=== PATIENT | male | born 1975 | race Caucasian/White ===

== ENCOUNTER 2021-12-04 23:54 | Emergency (ER) | payer OTHER ==
[2021-12-05] MEDS ORDERED: IBUPROFEN600 MG PO (02:02)
[2021-12-05] MEDS ORDERED: NORFLEX 100 MG100 MG PO (02:02)
== END 2021-12-05 02:31 | disposition home or self-care (01) ==
LOC: ER1 23:54
DX: S16.1XXA Strain of muscle, fascia and tendon at neck level, initial encounter (principal); R51.9 Headache, unspecified; F17.210 Nicotine dependence, cigarettes, uncomplicated; V89.2XXA Person injured in unspecified motor-vehicle accident, traffic, initial encounter
CPT/HCPCS: 70450; 99284